=== PATIENT | male | born 1955 | race Hispanic/Latino ===

== ENCOUNTER 2025-08-18 02:12 | Emergency (ER) | payer OTHER, MEDICAID ==
[~2025-08-18] VITALS: Ht 182.9 cm; Wt 107.0 kg
[~2025-08-18 02:12] MED LIST: ASPI-449 PO; ATOR40TA69 PO; AZIT500T4 PO; CEFD300C3 PO; CHOL200013 PO; CLOP75TA32 PO; FAMO20TA8 PO; FERR-82 PO; FOLI0.8T3 PO; FURO40TA5 PO; MECO10005 PO; METH4TAB3 PO; METO-408 PO; MONT-39 PO; MULT-1203 PO; SITA1TBM7 PO
[2025-08-18 02:33] LABS: APPEARANCE,URINE CLOUDY (CLEAR); GLUCOSE, URINE (UA) >=1000 mg/dL (NEGATIVE); LEUKOCYTE ESTERASE ,URINE 500 Leu/uL (NEGATIVE); NITRATE,URINE NEGATIVE (NEGATIVE); OCCULT BLOOD,URINE LARGE (NEGATIVE)
[2025-08-18 02:34] LABS: ADD UA MICROSCOPIC YES
[2025-08-18 02:39] LABS: SQUAMOUS EPITHELIAL CELL,UR RARE /HPF (0-2)
[2025-08-18 02:48] LABS: NUCLEATED RED BLOOD CELLS 0.0 % (0.0-0.19); PLATELET COUNT (AUTO) 255 K/uL (130-400); RED BLOOD CELL COUNT(AUTO) 4.34 MIL/uL (4.50-6.20); RED CELL DISTRIBUTION WIDTH 13.2 % (11.0-15.5); WHITE BLOOD COUNT (AUTO) 8.3 K/uL (4.8-10.8)
--- NOTE | 2025-08-18 02:54 | ERN ---
ED Note History of Present Illness Stated Complaint: C/O LOWER BACK PAIN W/BLOOD IN URINE X 2 DAYS Chief Complaint: Blood in Urine: Time Seen by MD: 02:25 Dictation: 70-year-old male who came to the ER due to pain on urination, blood in the urine x3 days. He denies history of kidney stones. Denies fever or chills. Allergies: Coded Allergies: No Known Allergies (Verified Allergy, Unknown, 09/21/24) Home Meds Active Scripts Tamsulosin HCl (Flomax) 0.4 Mg Cap.er.24h, 0.4 MG PO DAILY, #30 CAPSULE. Prov:ROSI OBRIEN MD 08/18/25 Cephalexin Monohydrate (Keflex) 500 Mg Cap, 1 CAP PO QID for 10 Days, #40 CAP 0 Refills Prov:ROSI OBRIEN MD 08/18/25 Ibuprofen (Ibuprofen) 600 Mg Tablet, 600 MG PO Q6H PRN for PAIN, #10 TAB Prov:ROSI OBRIEN MD 08/18/25 Montelukast Sodium (Montelukast Sodium) 10 Mg Tablet, 1 TAB PO DAILY for 30 Days, #30 TAB 0 Refills Prov:RITA ARREGUIN 07/24/25 Azithromycin (Azithromycin) 500 Mg Tablet, 1 TAB PO DAILY for 3 Days, #3 TAB 0 Refills Prov:RITA ARREUGIN 07/24/25 Methylprednisolone (Medrol) 4 Mg Tab.ds.pk, 1 TAB PO AD for 6 Days, #21 TAB 0 Refills 6 on day 1 then reduce by one tablet daily until gone Prov:RITA ARREGUIN 07/24/25 Cefdinir (Cefdinir) 300 Mg Capsule, 1 CAP PO BID for 7 Days, #14 CAP 0 Refills Prov:RITA ARREGUIN 07/24/25 Reported Medications Mecobalamin (B12 Active) 1,000 Mcg Tab.chew, 1 TAB PO DAILY for 30 Days, #30 TAB 0 Refills 07/22/25 Aspirin (Adult Low Dose Aspirin EC) 81 Mg Tablet.dr, 1 TAB PO DAILY for 30 Days, #30 TAB 0 Refills 07/22/25 Clopidogrel Bisulfate (Clopidogrel) 75 Mg Tablet, 1 TAB PO DAILY for 30 Days, #30 TAB 0 Refills 07/22/25 Ferrous Sulfate (Iron) 325 Mg (65 Mg Iron) Tablet, 1 TAB PO DAILY for 30 Days, #30 TAB 0 Refills 07/22/25 Folic Acid (Folic Acid) 0.8 Mg Tablet, 0.8 MG PO DAILY, TAB 07/22/25 Atorvastatin Calcium (LIPITOR) 40 Mg Tablet, 1 TAB PO HS for 30 Days, #30 TAB 0 Refills 07/22/25 Famotidine (Famotidine) 20 Mg Tablet, 1 TAB PO DAILY for 30 Days, #60 TAB 0 Refills 07/22/25 Metoprolol Succinate (Metoprolol Succinate) 25 Mg Tab.er.24h, 1 TAB PO DAILY for 30 Days, #30 TAB 0 Refills 07/22/25 Furosemide (Furosemide) 40 Mg Tablet, 1 TAB PO DAILY for 30 Days, #30 TAB 0 Refills 07/22/25 Sitagliptin Phos/Metformin HCl (Janumet Xr 100-1,000 mg Tablet) 100 Mg-1,000 Mg Tbmp.24hr, 1 TAB PO DAILYDINNER for 30 Days, #30 TAB 0 Refills 07/22/25 Cholecalciferol (Vitamin D3) (Vitamin D3) 50 Mcg (2000 Unit) Capsule, 1 CAP PO DAILY for 30 Days, #30 CAP 0 Refills 07/22/25 Multivitamin (Multi Vitamin Daily) 1 Each Tablet, 1 TAB PO DAILY for 30 Days, #30 TAB 0 Refills 07/22/25 Past Medical History Past Medical History: COPD, Diabetes-Type II, Hypertension Surgical History: Other Surgical History Other: QUADRUPLE BYPASS (2023) Family History: Negative Social History: Negative Review of System Dictation NEGATIVE EXCEPT PER HPI Constitutional: Negative for fever,chills, and weight loss Eyes: Negative for injury, pain,redness, and discharge ENT: Negative for injury,pain or swelling Cardiovascular: denies chest pain, palpitations, and edema Respiratory: Negative for shortness of breath, cough, and wheezing, Abdomen/GI: Negative for abdominal pain, nausea, vomiting, diarrhea, and con stipation Back: Negative for injury and pain : Dysuria, hematuria MS/Extremity: Negative for injury and deformity Skin: Negative for rash, and discoloration Neuro: Negative for headache, weakness, numbness, tingling, and seizure Psych: Negative for suicide ideation, homicidal ideation, and hallucinations Initial Vital Sign VS Vital Signs Date Time Temp Pulse Resp B/P (MAP) Pulse Ox O2 Delivery O2 Flow Rate FiO2 08/18/25 02:13 98.8 88 20 136/76 99 Room Air 08/18/25 02:30 0 21 Physical Exam Dictation General: awake, alert, NAD Head/Face: Normocephalic, atraumatic Eyes: PERRL, EOMI, vision at baseline ENT: oral cavity clear, TMs clear, no signs of infection Neck: Trachea midline, supple, no nuchal rigidity Cardiovascular: RRR, normal S1/S2, No MRGs, no JVD Respiratory: CTAB, no respiratory distress, No rales or wheezes Abdomen: Soft , no tender Skin: Warm, dry, normal turgor, no rash MS/Extremity: Pulses equal, no cyanosis, neurovascular intact, FROM Neuro: COAx4, GCS 15, strength 5/5, CN 2-12 intact, normal cerebellar exam, normal gait, Psych: Normal behavior, mood, and affect normal Results (Laboratory/Radiology) Laboratory/Radiology Laboratory Tests Test 08/18/25 02:19 08/18/25 02:41 Urine Color LIGHT-BROWN (YELLOW) Urine Appearance CLOUDY (CLEAR) H Urine pH 7.0 (5.0-8.0) Urine Specific [place] 1.014 (1.001-1.031) Urine Protein 30 mg/dL (NEGATIVE) H Urine Glucose (UA) >=1000 mg/dL (NEGATIVE) H Urine Ketones NEGATIVE mg/dL (NEGATIVE) Urine Occult Blood LARGE (NEGATIVE) H Urine Nitrate NEGATIVE (NEGATIVE) Urine Bilirubin NEGATIVE mg/dL (NEGATIVE) Urine Urobilinogen 0.2 mg/dL (0.2-1.0) Urine Leukocyte Esterase 500 [place]/uL (NEGATIVE) H Urine RBC TNTC /HPF (0-1) H Urine WBC TNTC /HPF (0-1) H Urine Squamous Epithelial Cells RARE /HPF (0-2) Urine Bacteria RARE /HPF (None Seen) White Blood Count 8.3 K/uL (4.8-10.8) Red Blood Count 4.34 MIL/uL (4.50-6.20) L Hemoglobin 12.7 g/dL (14.0-18.0) L Hematocrit 38.0 % (42-54) L Mean Corpuscular Volume 87.6 fL (79-99) Mean Corpuscular Hemoglobin 29.3 pg (27.0-33.0) Mean Corpuscular Hemoglobin Concent 33.4 g/dL (32.0-36.0) Red Cell Distribution Width 13.2 % (11.0-15.5) Platelet Count 255 K/uL (130-400) Mean Platelet Volume 8.6 fL (7.5-10.5) Immature Granulocyte % (Auto) 1.1 % (0-1) H Neutrophils (%) (Auto) 67.9 % (40.0-77.0) Lymphocytes (%) (Auto) 17.3 % (21.0-51.0) L Monocytes (%) (Auto) 11.7 % (3.0-13.0) Eosinophils (%) (Auto) 1.6 % (0.0-8.0) Basophils (%) (Auto) 0.4 % (0.0-5.0) Neutrophils # (Auto) 5.6 K/uL (1.8-7.7) Lymphocytes # (Auto) 1.4 K/uL (1.0-4.8) Monocytes # (Auto) 1.0 K/uL (0.1-1.0) Eosinophils # (Auto) 0.13 K/uL (0.00-0.70) Basophils # (Auto) 0.03 K/uL (0.00-0.20) Absolute Immature Granulocyte (auto 0.09 K/uL (0-1) Nucleated Red Blood Cells 0.0 % (0.0-0.19) Sodium Level 135 mmol/L (136-145) L Potassium Level 4.1 mmol/L (3.5-5.1) Chloride Level 97 mmol/L (101-111) L Carbon Dioxide Level 28 mmol/L (21-32) Blood Urea Nitrogen 14 mg/dL (7-18) Creatinine 1.0 mg/dL (0.5-1.3) Glomerular Filtration Rate Calc 82 mL/min (>90) Random Glucose 349 mg/dL (70-105) H Total Calcium 8.5 mg/dL (8.5-10.1) ED Course ED Course Orders Procedure Category Date Status Time Urinalysis Profile LAB 08/18/25 Complete 02:23 Basic Metabolic Panel LAB 08/18/25 Complete 02:23 Culture Urine JOSE ALBERTO 08/18/25 In Process 02:34 Ceftriaxone 2gm Vial PHA 08/18/25 Complete (Rocephin 2gm Inj) 03:00 Ct Abdomen/Pelvis W/O CT 08/18/25 Resulted Contrast 03:03 0.9%Nacl 1000ml (Ns PHA 08/18/25 In Process 1000ml) 03:30 Cbc With Differential LAB 08/18/25 Complete 02:41 Tamsulosin Hcl PHA 08/18/25 Complete (Flomax) 05:30 Ketorolac PHA 08/18/25 Complete Tromethamine 15mg/Ml 05:30 Current Medications Medications (Trade) Dose Ordered Sig/Clint Route PRN Reason Start Time Stop Time Status Last Admin Dose Admin Ceftriaxone Sodium (Rocephin 2gm Inj) 2 gm ONCE ONCE IVPB 08/18/25 03:00 08/18/25 03:05 DC 08/18/25 03:12 Ketorolac Tromethamine (toRADol) 15 mg ONCE ONCE IV 08/18/25 05:30 08/18/25 05:31 DC Sodium Chloride 1,000 ml @ 150 mls/hr Q6H40M IV 08/18/25 03:30 09/17/25 03:29 08/18/25 03:12 Tamsulosin HCl (FloMAX) 0.4 mg ONCE ONCE PO 08/18/25 05:30 08/18/25 05:31 DC Vital Signs Date Time Temp Pulse Resp B/P (MAP) Pulse Ox O2 Delivery O2 Flow Rate FiO2 08/18/25 05:05 98.4 83 18 134/62 96 Room Air* 0 21 08/18/25 03:47 98.4 83 18 173/82 96 Room Air* 0 21 08/18/25 02:30 98.4 89 18 166/69 96 Room Air* 0 21 08/18/25 02:13 98.8 88 20 136/76 99 Room Air Medical Decision Making MDM Urinary tract infection Kidney stones Malignancy of urinary tract UA, CBC, BNP, CT images of abdomen and pelvis. UA was positive for leukocyte esterase---> started on IV antibiotics ceftriaxone 2 g IV fluids for gentle hydration Ketorolac IV Flomax CT images show: PROCEDURE: ABD PEL WO - CT ABDOMEN/PELVIS W/O CONTRAST EXAM: CT Abdomen and Pelvis without IV contrast CLINICAL HISTORY: Kidney stones. Hematuria. TECHNIQUE: Thin collimated axial CT images of the abdomen and pelvis were obtained with sagittal and coronal reformatted images also submitted. CT scan is done according to ALARA (As Low As Reasonably Achievable). CONTRAST: None. COMPARISON: None. FINDINGS: There are few scattered calcified granulomas in the bilateral lung zepeda. Symmetrical dependent atelectasis in the bilateral posterior basal lungs. Partially visualized sternotomy sutures. Mild fatty liver. No focal abnormality within the gallbladder, pancreas, spleen, or adrenals. Mild hydroureteronephrosis with periureteric and perinephric inflammatory changes on the right side, which could be secondary to the recent passage of a right ureteral calculus. Unremarkable left kidney. Mild prostatomegaly. Mild chronic cystitis. No obvious bowel wall thickening, dilatation, or obstruction. No acute appendicitis is evident. Calcific atherosclerotic disease in the abdominal aorta and its branches. No abdominal aortic aneurysm. No pathological lymphadenopathy in the abdomen or pelvis. No ascites or pneumoperitoneum. No acute bony abnormality is evident. Degenerative osseous changes. Mild to moderate spinal canal stenosis at the T11-T12 level. IMPRESSIONS: Mild hydroureteronephrosis with periureteric and perinephric inflammatory changes on the right side, which could be secondary to the recent passage of a right ureteral calculus. Mild prostatomegaly. Mild chronic cystitis. Mild fatty liver. Patient he will be discharged on Flomax, oral antibiotics and recommended to follow up with the PCP. DX & DISP Disposition: Discharge Departure Impression: Primary Impression: UTI (urinary tract infection) Additional Impressions: Hydroureter on right, Hematuria, Nephrolithiasis, BPH (benign prostatic hyperplasia) Condition: Stable Scripts Tamsulosin HCl (Flomax) 0.4 Mg Cap.er.24h 0.4 MG PO DAILY, #30 CAPSULE.DR Prov: ROSI OBRIEN MD 08/18/25 Cephalexin Monohydrate (Keflex) 500 Mg Cap 1 CAP PO QID for 10 Days, #40 CAP 0 Refills Prov: ROSI OBRIEN MD 08/18/25 Ibuprofen (Ibuprofen) 600 Mg Tablet 600 MG PO Q6H PRN for PAIN, #10 TAB Prov: ROSI OBRIEN MD 08/18/25 Additional Instructions: RETURN TO ER FOR ANY ACUTE OR WORSENING SYMPTOMS. FOLLOW-UP IN 1-2 DAYS WITH PRIMARY PROVIDER FOR RECHECK OF TODAY'S SYMPTOMS. Referrals: XAVIER WILKERSON MD (PCP) Time of Disposition: 05:23 ROSI OBRIEN MD Aug 18, 2025 02:54
[2025-08-18 03:00] LABS: CREATININE 1.0 mg/dL (0.5-1.3); GLOMERULAR FILTR. RATE CALC 82.0 mL/min (>90); GLUCOSE,RANDOM 349.0 mg/dL (70-105); SODIUM SERUM 135.0 mmol/L (136-145); UREA NITROGEN, BLOOD 14.0 mg/dL (7-18)
[2025-08-18 03:07] LABS: IMMATURE GRANULOCYTE ABSOLUTE 0.09 K/uL (0-1)
[2025-08-18] MEDS: 0.9%NACL 1000ML 1,000 ML IV SCH (03:12)
--- NOTE | 2025-08-18 05:09 | HMCIMG ---
EXAM: CT Abdomen and Pelvis without IV contrast CLINICAL HISTORY: Kidney stones. Hematuria. TECHNIQUE: Thin collimated axial CT images of the abdomen and pelvis were obtained with sagittal and coronal reformatted images also submitted. CT scan is done according to ALARA (As Low As Reasonably Achievable). CONTRAST: None. COMPARISON: None. FINDINGS: There are few scattered calcified granulomas in the bilateral lung zepeda. Symmetrical dependent atelectasis in the bilateral posterior basal lungs. Partially visualized sternotomy sutures. Mild fatty liver. No focal abnormality within the gallbladder, pancreas, spleen, or adrenals. Mild hydroureteronephrosis with periureteric and perinephric inflammatory changes on the right side, which could be secondary to the recent passage of a right ureteral calculus. Unremarkable left kidney. Mild prostatomegaly. Mild chronic cystitis. No obvious bowel wall thickening, dilatation, or obstruction. No acute appendicitis is evident. Calcific atherosclerotic disease in the abdominal aorta and its branches. No abdominal aortic aneurysm. No pathological lymphadenopathy in the abdomen or pelvis. No ascites or pneumoperitoneum. No acute bony abnormality is evident. Degenerative osseous changes. Mild to moderate spinal canal stenosis at the T11-T12 level. IMPRESSIONS: Mild hydroureteronephrosis with periureteric and perinephric inflammatory changes on the right side, which could be secondary to the recent passage of a right ureteral calculus. Mild prostatomegaly. Mild chronic cystitis. Mild fatty liver. /[place]
[2025-08-18] MEDS ORDERED: IBUP-1492 PO (05:22)
[2025-08-18] MEDS ORDERED: CEPH500B PO (05:22)
[2025-08-18] MEDS ORDERED: TAMS-55 PO (05:22)
[2025-08-18 05:51] VITALS: BP 144/68; PULSE 83; RESP 18; TEMP 98.4; O2SAT 96
== END 2025-08-18 05:52 | disposition home or self-care (01) ==
LOC: EDH 02:12
DX: N40.1 Benign prostatic hyperplasia with lower urinary tract symptoms (principal); R31.9 Hematuria, unspecified; N13.2 Hydronephrosis with renal and ureteral calculous obstruction; I10 Essential (primary) hypertension; E11.9 Type 2 diabetes mellitus without complications; J44.9 Chronic obstructive pulmonary disease, unspecified; Z79.899 Other long term (current) drug therapy; Z79.02 Long term (current) use of antithrombotics/antiplatelets; Z79.82 Long term (current) use of aspirin; Z87.442 Personal history of urinary calculi
CPT/HCPCS: 99285; 74176; 96374; 96375; 80048; 85025; 87086 ×2; 87186; 81001; 36415; J1885; J0696